=== PATIENT | female | born 1955 | race Caucasian/White ===

== ENCOUNTER → 2017-05-28 | Outpatient (CLI) | payer OTHER ==
[~2017-05-28] MED LIST: ESTR0.5T PO; LEVO75TA PO; PROGESTERONE PO
[2017-05-28 15:05] LABS: HEMATOCRIT 41.5 % (34.6-47.8); HEMOGLOBIN 13.9 g/dL (11.7-16.4); WHITE BLOOD COUNT 7.3 x10^3/uL (3.4-10)
[2017-05-28 15:16] LABS: BLOOD UREA NITROGEN 14 mg/dL (7-18)
[2017-05-28 15:20] LABS: ASPARTATE AMINO TRANSFERASE 19 U/L (15-37)
[2017-05-28 15:29] LABS: HIV 1&2 ANTIBODY SCREEN Nonreactive (Nonreactive); HIV-1 p24 ANTIGEN Nonreactive (Nonreactive)
== END | disposition home or self-care (01) ==
LOC: STAR 14:12
PROVIDERS: ATTEND Surgery
DX: Z01.818 Encounter for other preprocedural examination (principal); A63.0 Anogenital (venereal) warts
CPT/HCPCS: 36415; 80053; 85025; 86703; 87899; 93005; G0435

== ENCOUNTER 2017-06-08 05:36 | Day surgery (SDC) | payer OTHER ==
[~2017-06-08] VITALS: Ht 160 cm; Wt 50.5 kg
[2017-06-08 06:19] VITALS: BP 110/75
[2017-06-08] MEDS ORDERED: LACTATED RINGERS 1,000 ML IV SCH (06:24)
[2017-06-08] MEDS ORDERED: LIDOCAINE 1%, 2ML SQ PRN (06:30)
[2017-06-08] MEDS ORDERED: PROPOFOL 10 MG/ML, 20ML ONE (06:33)
[2017-06-08] MEDS ORDERED: MIDAZOLAM 1 MG/ML, 2ML ONE (06:33)
[2017-06-08] MEDS ORDERED: FENTANYL PF 100 MCG/2ML ONE (06:33)
[2017-06-08] MEDS ORDERED: SUCCINYLCHOLINE 20 MG/ML, 10ML ONE (06:35)
[2017-06-08] MEDS ORDERED: BUPIVACAINE LIPOSOME/PF INFIL ONE (06:40)
[2017-06-08] MEDS ORDERED: BUPIVACAINE/PF 0.5% ONE (06:43)
[2017-06-08] MEDS ORDERED: DEXAMETHASONE 4 MG/ML, 1ML ONE ×2 (06:46)
[2017-06-08] MEDS ORDERED: ROCURONIUM 10 MG/ML,10ML ONE (07:04)
[2017-06-08] MEDS ORDERED: KETOROLAC 30 MG/1 ML ONE (07:04)
[2017-06-08] MEDS ORDERED: ONDANSETRON 2MG/ML, 2ML ONE (07:19)
[2017-06-08] MEDS ORDERED: LABETALOL 5MG/ML, 20ML IV PRN (07:30)
[2017-06-08] MEDS ORDERED: MEPERIDINE/PF 25MG/0.5ML IVPush PRN (07:30)
[2017-06-08] MEDS ORDERED: FENTANYL PF 100 MCG/2ML IV PRN (07:30)
[2017-06-08] MEDS ORDERED: ONDANSETRON 2MG/ML, 2ML IVPush PRN (07:30)
[2017-06-08] MEDS ORDERED: OXYcodone 5 MG/5 ML ORAL.SOL UDC PO PRN (07:30)
[2017-06-08] MEDS ORDERED: HYDROmorphone 1 MG/ML, 1ML IV PRN (07:30)
[2017-06-08] MEDS ORDERED: ACETAMINOPHEN 325 MG TABLET PO PRN (07:30)
[2017-06-08] MEDS ORDERED: PROMETHAZINE 25 MG/ML, 1ML IV PRN (07:30)
[2017-06-08] MEDS ORDERED: ACETAMINOPHEN 650 MG/20.3 ML UDC ONE (08:17)
== END 2017-06-08 09:35 ==
LOC: OUT 05:36 → MERGE 09:30 → OUT 09:35
PROVIDERS: ATTEND Surgery
DX: A63.0 Anogenital (venereal) warts (principal); K62.89 Other specified diseases of anus and rectum; K21.9 Gastro-esophageal reflux disease without esophagitis; E03.9 Hypothyroidism, unspecified; Z90.49 Acquired absence of other specified parts of digestive tract; Z98.890 Other specified postprocedural states; Z72.89 Other problems related to lifestyle
CPT/HCPCS: 46916; 88305; C1729; J0330; J1100; J1885; J2250; J2405; J2704; J3010; J3490; J7120; C9290